=== PATIENT | male | born 1945 | race Caucasian/White ===

== ENCOUNTER 2019-08-02 18:12 | Observation (INO) | payer MEDICARE, OTHER ==
[~2019-08-02] VITALS: Ht 172.7 cm; Wt 82.2 kg
[~2019-08-02 18:12] MED LIST: ATEN50; ATOR40TA; Aspir 8181 MG PO; FISH1000; Hair, Skin & N1 EACH PO; LOSA25 PO; METO25ER PO; NITR.4SL; Percocet 5-3251 EACH PO; Zofran Odt4 MG SL; [UNRECOGNIZED DRUG - REMARK]
[2019-08-02] MEDS ORDERED: Hydrocodone-Ap1 EA26 PO (18:43)
[2019-08-02 18:45] LABS: BASOPHILS ABSOLUTE AUTO 0.03 K/mm3 (0.00-0.23); BASOPHILS PERCENT AUTO 0 % (0-2); EOSINOPHILS ABSOLUTE AUTO 0.28 K/mm3 (0.00-0.68); EOSINOPHILS PERCENT AUTO 3 % (0-6); IMMATURE GRAN ABSOLUTE AUTO 0.03 K/mm3 (0.00-0.10); IMMATURE GRAN PERCENT AUTO 0 % (0-1); LYMPHOCYTES ABSOLUTE AUTO 2.33 K/mm3 (0.84-5.20); LYMPHOCYTES PERCENT AUTO 27 % (21-46); MONOCYTES ABSOLUTE AUTO 0.92 K/mm3 (0.16-1.47); MONOCYTES PERCENT AUTO 11 % (4-13); Mean Corpuscular HGB 32.5 pg (26.0-34.0); Mean Corpuscular HGB Conc 34.1 g/dL (31.5-36.5); Mean Corpuscular Volume 95 fL (80-100); Mean Platelet Volume 9.7 fL (9.1-12.4); NEUTROPHILS ABSOLUTE AUTO 4.93 K/mm3 (1.96-9.15); NEUTROPHILS PERCENT AUTO 58 % (41-73); Platelet Count 238 K/mm3 (150-400); RDW Coefficient Variation 12.2 % (11.7-14.2); RDW Standard Deviation 42.9 fL (35.1-46.3); Red Blood Cell Count 4.61 M/mm3 (4.30-5.90); White Blood Cell Count 8.52 K/mm3 (4.00-11.30)
[2019-08-02 19:11] LABS: Troponin I <0.015 ng/mL (0.000-0.040)
[2019-08-02 19:17] LABS: Alanine Aminotransfer (ALT/SGP 62 U/L (12-78); Albumin, Blood 4.2 g/dL (3.4-5.0); Albumin/Globulin Ratio 1.4 (0.8-1.8); Alk Phos 54 U/L (50-136); Anion Gap 5 mmol/L (6-16); Aspartate Aminotrans (AST/SGOT 33 U/L (12-37); Bilirubin, Total 0.3 mg/dL (0.1-1.0); Blood Urea Nitrogen 22 mg/dL (8-24); Bun/Creatinine Ratio 23.1 (12.0-20.0); CO2, Blood 29 mmol/L (21-32); Calcium, Blood 9.3 mg/dL (8.5-10.1); Chloride, Blood 105 mmol/L (98-108); Creatinine, Blood 0.95 mg/dL (0.60-1.20); Glomerular Filtration Rate >60 (60-); Glucose, Blood 104 mg/dL (70-99); Potassium, Blood 3.9 mmol/L (3.5-5.5); Sodium, Blood 139 mmol/L (136-145); Total Protein, Blood 7.2 g/dL (6.4-8.2)
[2019-08-02] MEDS ORDERED: Simvastatin20 MG PO (20:05)
[2019-08-02] MEDS ORDERED: LOSARTAN-HCTZ1 EACH PO (20:06)
[2019-08-02] MEDS ORDERED: RANO500T PO (20:44)
[2019-08-02] MEDS ORDERED: ASCO500 PO (20:45)
[2019-08-02] MEDS ORDERED: Fish Oil 10001000 MG PO (20:45)
[2019-08-02] MEDS ORDERED: CO Q10200 MG PO (20:46)
[2019-08-03 02:53] LABS: Mean Corpuscular HGB 32.6 pg (26.0-34.0); Mean Corpuscular HGB Conc 34.1 g/dL (31.5-36.5); Mean Corpuscular Volume 95 fL (80-100); Mean Platelet Volume 9.5 fL (9.1-12.4); Platelet Count 237 K/mm3 (150-400); RDW Coefficient Variation 12.2 % (11.7-14.2); RDW Standard Deviation 42.4 fL (35.1-46.3); White Blood Cell Count 9.47 K/mm3 (4.00-11.30)
[2019-08-03 03:13] LABS: Alanine Aminotransfer (ALT/SGP 60 U/L (12-78); Albumin/Globulin Ratio 1.3 (0.8-1.8); Alk Phos 55 U/L (50-136); Anion Gap 7 mmol/L (6-16); Aspartate Aminotrans (AST/SGOT 33 U/L (12-37); Bilirubin, Total 0.4 mg/dL (0.1-1.0); Blood Urea Nitrogen 20 mg/dL (8-24); Bun/Creatinine Ratio 21.4 (12.0-20.0); CO2, Blood 27 mmol/L (21-32); CPK Creatine Kinase 293 U/L (39-308); Calcium, Blood 8.6 mg/dL (8.5-10.1); Chloride, Blood 106 mmol/L (98-108); Creatinine, Blood 0.94 mg/dL (0.60-1.20); Globulin, Blood 3.1 g/dL (2.2-4.0); Glomerular Filtration Rate >60 (60-); Glucose, Blood 111 mg/dL (70-99); Potassium, Blood 3.8 mmol/L (3.5-5.5); Sodium, Blood 140 mmol/L (136-145); Total Protein, Blood 7.1 g/dL (6.4-8.2); Troponin I <0.015 ng/mL (0.000-0.040)
--- NOTE | 2019-08-03 05:20 | NUR ---
SHIFT SUMMARY: SCAR IS A 74 Y/O MALE WHO WAS ADMITTED FOR CHEST PAIN WITH NEGATIVE TROPONIN. STATES HE HAS BEEN HAVING CHEST PAIN EVERY SINCE HE STARTED HIS HYDROCODONE FOR LOWER BACK PAIN. STATES HE HAS HAD 4 EPISODES OF CHEST PAIN THAT RADIATES TO THE JAW AND DOWN THE ARM. IT TYPICALLY RESOLVES BUT TONIGHT IT LASTED FOR 20 MINUTES. SO HE WAS BROUGHT TO THE HOSPITAL. HE TOOK NITRO AND ASA AT HOME. THIS RELEIVED THE PAIN BEFORE HE ARRIVED. HE WAS ADMITTED FOR OBSERVATION. HE ARRIVED TO THE FLOOR VIA WC. HE TRANSFERRED SELF TO THE BED AND WAS UP WALKING AROUND THE ROOM DURING ASSESSMENT. STATES HE CAN NOT SIT STILL DUE TO LOWER BACK PAIN. HE IS TO HAVE SURGERY ON Aug FOR HIS BACK. HE DENIES ANY CHEST PAIN AT THIS TIME. ASSESSMENT WAS BENIGN. MD WAS CALLED FOR HYDROCODONE ORDER FOR HIS BACK. ORDER WAS OBTAINED AND PILL WAS GIVEN FOR PAIN WITH FENTANYL. SHORTLY AFTER HE DID HAVE THE SAME TYPE OF PAIN HE DISCRIBED AGAIN AFTER TAKING THE PAIN MED. GI COCKTAIL WAS GIVEN TO SEE IF IT WOULD RELEIVE ANY PAIN, EVEN THOUGH PAIN HAD ALREADY RESOLVED. HE LAID BACK DOWN AND WENT TO SLEEP FOR A SHORT PERIOD OF TIME. NO OTHER CHANGES OCCURED THIS SHIFT. WILL REPORT TO DAY SHIFT RN.
[2019-08-03 10:57] LABS: CPK Creatine Kinase 263 U/L (39-308); Troponin I <0.015 ng/mL (0.000-0.040)
--- NOTE | 2019-08-03 17:04 | NUR ---
Shift Summary A/Ox4. Pleasant and cooperative with care. Pt seems to be slightly LOWER [place], this RN had to repeat a couple of times for pt to hear. Tele @ SR 89. Medicated for back pain once per EMAR with good results. Denies N/V/D. Has been up in room independently and continent to the bathroom. Denies N/T. C/o one time chest pain, but after burping, it went away according to patient. Blood pressure has been in the 140-150's, afebrile. Troponins continue to be negative x 3. No other acute changes this shift.
--- NOTE | 2019-08-04 04:38 | NUR ---
BUSINESS INSTRUCTOR SUMMARY PATIENT HAD NO COMPLAINTS OF BACK OR CHEST DISCOMFORT OVERNIGHT. UP AMBULATING IN HALLS BETWEEN SHORT BOUTS OF SLEEP. TELE: SR 70-80'S. NO SOB, PRESSURE OR CHEST PAIN NOTES. VITAL SIGNS STABLE.
[2019-08-04 04:49] LABS: Albumin, Blood 3.4 g/dL (3.4-5.0); Anion Gap 4 mmol/L (6-16); Blood Urea Nitrogen 22 mg/dL (8-24); Bun/Creatinine Ratio 22.6 (12.0-20.0); CHOL/HDL RATIO 3.9; CO2, Blood 28 mmol/L (21-32); Calcium, Blood 8.4 mg/dL (8.5-10.1); Chloride, Blood 106 mmol/L (98-108); Cholesterol 194 mg/dL (50-200); Creatinine, Blood 0.97 mg/dL (0.60-1.20); Glomerular Filtration Rate >60 (60-); Glucose, Blood 111 mg/dL (70-99); HDL Cholesterol 50 mg/dL (>39); LDL/HDL RATIO 2.3; Low Density Lipoprotein Chol 116 mg/dL (0-110); Phosphorus, Blood 2.9 mg/dL (2.5-4.9); Potassium, Blood 3.7 mmol/L (3.5-5.5); Sodium, Blood 138 mmol/L (136-145); Triglycerides 139 mg/dL (30-160); Very Low Density Lipoprot Chol 27 mg/dL (6-32)
--- NOTE | 2019-08-04 05:28 | NUR ---
SHIFT SUMMARY ADDENDUM: PATIENT STATED THAT HE HAD HAD A FEW SIPS OF WATER VALDEZ HE WOKE UP AT 0500. PITCHER WAS EMPTIED AND PATIENT VERBALIZED UNDERSTANDING THAT HE IS TO BE NPO BEFORE STRESS TEST.
--- NOTE | 2019-08-04 19:05 | NUR ---
SHIFT SUMMARY PATIENT A&O X4, NO ISSUES ON TELE TODAY, DENIES CHEST PAIN/PRESSURE, NAUSEA, SOB, WEAKNESS. HE STATED HE HAD CHRONIC LOWER BACK PAIN AND HAS SURGERY SCHEDULED, NORCO GIVEN. IT HELPS PAIN FOR PATIENT TO WALK AROUND. AT THE BEGINNING OF THE SHIFT PT WAS WALKING BACK AND FORTH IN THE [place] AND STATED HE WANTED TO LEAVE. STRESS TEST SCHEDULED TO START AT [address] ALDANA SPOKE TO THIS RN AND STATED SHE WANTED TO GET THE STRESS TEST COMPLETED IN ONE DAY TODAY. [facility]UC MED TECH WAS CALLED AND HE STATED HE COULD NOT SWITCH PATIENTS AROUND TO ACCOMODATE THAT. DR ALDANA SPOKE TO HIM AND THE 1 DAY STRESS TEST WAS ABLE TO BE PERFORMED. THIS WAS EXPLAINED TO PATIENT AND HE AGREED TO STAY TODAY BUT WOULD LIKE TO LEAVE WHEN IT IS COMPLETED TONIGHT. PATIENT IS PLEASANT AND REASONABLE WITH NURSING STAFF. RN NOTIFIED DR ALDANA THAT FULL STRESS TEST RESULTS ARE IN. PATIENT IS REFUSING TO HAVE DR ALDANA IN ROOM, SO SHE MET WITH INTRANET DEVELOPER AND RN TO TALK ABOUT SITUATION. SHE EXPLAINED THE EPISODE THAT HAPPENED LAST NIGHT BETWEEN DR ALDANA, THE PT, AND HIS , ABOUT HIS PAIN MEDS/FENTANYL ORDER. INTRANET DEVELOPER SPOKE WITH PATIENT AND . THE PATIENT CONTINUED TO REFUSE TO HAVE DR Harding IN ROOM. THIS RN ASKED PATIENT IF HE WANTED TO HEAR HIS TEST RESULTS, BUT STATED IT WOULD HAVE TO BE FROM DR ALDANA, NOT A NURSE. HE REFUSED. RN STATED THAT RESULTS/CHARTED INFORMATION COULD BE OBTAINED FROM MEDICAL RECORDS OR POTENTIALLY FROM HIS PCP. PSYCH NURSE STATED SHE COMPLETED DISCHARGE PACKET, REPORT PASSED ON TO SUPERINTENDENT MENAGERIE RN AND TRAINEE.
--- NOTE | 2019-08-04 20:01 | NUR ---
PATIENT DISCHARGED. SPOUSE PRESENT. DISCHARGE FORM SIGNED AND IN CHART. DISCHARGE PAPERS REVIEWED. TELEMETRY DC AND PIV DC'D. PATIENT AND SPOUSE TOOK PERSONAL BELONGINGS.
== END 2019-08-04 20:03 | disposition home or self-care (01) ==
LOC: ER 18:12 → MEDS 18:13
PROVIDERS: Internal Medicine; Physician Assistant; ADMIT Internal Medicine
DX: R07.89 Other chest pain (principal); E78.5 Hyperlipidemia, unspecified; I25.10 Atherosclerotic heart disease of native coronary artery without angina pectoris; M48.00 Spinal stenosis, site unspecified; F17.200 Nicotine dependence, unspecified, uncomplicated; I10 Essential (primary) hypertension; M47.819 Spondylosis without myelopathy or radiculopathy, site unspecified; R14.1 Gas pain; I25.2 Old myocardial infarction; K59.00 Constipation, unspecified; M54.5 Low back pain; G89.29 Other chronic pain; M25.559 Pain in unspecified hip; I25.110 Atherosclerotic heart disease of native coronary artery with unstable angina pectoris; E66.9 Obesity, unspecified; Z79.82 Long term (current) use of aspirin; Z79.899 Other long term (current) drug therapy; Z88.5 Allergy status to narcotic agent; Z88.6 Allergy status to analgesic agent; Z82.49 Family history of ischemic heart disease and other diseases of the circulatory system; Z68.27 Body mass index [BMI] 27.0-27.9, adult
CPT/HCPCS: 36415; 71046; 78452; 80053; 80061; 80069; 82550; 83036; 84484; 85025; 85027; 93005; 93010; 93017; 96372; 96374; 96375; 96376; 99285-25; A9500; C9113; G0378; J0706; J1650; J2785; J3010

== ENCOUNTER → 2019-12-07 | Outpatient (CLI) | payer MEDICARE ==
[~2019-12-07] MED LIST changes: +ASCO500 PO; +CO Q10200 MG PO; +Fish Oil 10001000 MG PO; +Hydrocodone-Ap1 EA26 PO; +LOSARTAN-HCTZ1 EACH PO; +RANO500T PO; +Simvastatin20 MG PO
== END ==
LOC: LAB SHORT 07:54 → PLD 07:54
DX: D48.5 Neoplasm of uncertain behavior of skin (principal)
CPT/HCPCS: 88305

== ENCOUNTER → 2020-01-04 | Outpatient (CLI) | payer MEDICARE | END | disposition home or self-care (01) | LOC: PLD 11:48 → LAB SHORT 11:48 | DX: D48.5 Neoplasm of uncertain behavior of skin (principal) | CPT/HCPCS: 88305 ==

== ENCOUNTER → 2023-03-12 | Outpatient (CLI) | payer MEDICARE ==
[2023-03-12 13:40] LABS: Hematocrit 41.8 % (37.0-53.0); Hemoglobin 14.3 g/dL (13.5-17.5); Mean Corpuscular HGB 32.4 pg (26.0-34.0); Mean Corpuscular HGB Conc 34.2 g/dL (31.5-36.5); Mean Corpuscular Volume 95 fL (80-100); Mean Platelet Volume 10.4 fL (9.1-12.4); Platelet Count 216 K/mm3 (150-400); RDW Coefficient Variation 12.6 % (11.7-14.2); RDW Standard Deviation 43.6 fL (35.1-46.3); Red Blood Cell Count 4.42 M/mm3 (4.30-5.90); White Blood Cell Count 7.08 K/mm3 (4.00-11.30)
[2023-03-12 14:22] LABS: Very Low Density Lipoprot Chol 26 mg/dL (6-32)
[2023-03-12 14:34] LABS: Alanine Aminotransfer (ALT/SGP 25 U/L (12-78); Albumin, Blood 3.8 g/dL (3.4-5.0); Albumin/Globulin Ratio 1.2 (0.8-1.8); Alk Phos 63 U/L (50-136); Anion Gap 4 mmol/L (6-16); Aspartate Aminotrans (AST/SGOT 19 U/L (12-37); Bilirubin, Total 0.6 mg/dL (0.1-1.0); Blood Urea Nitrogen 14 mg/dL (8-24); Bun/Creatinine Ratio 12.1 (12.0-20.0); CHOL/HDL RATIO 3.7; CO2, Blood 28 mmol/L (21-32); Calcium, Blood 8.9 mg/dL (8.5-10.1); Chloride, Blood 110 mmol/L (98-108); Cholesterol 193 mg/dL (50-200); Creatinine, Blood 1.16 mg/dL (0.60-1.20); Globulin, Blood 3.3 g/dL (2.2-4.0); Glomerular Filtration Rate 65 (60-); Glucose, Blood 122 mg/dL (70-99); HDL Cholesterol 52 mg/dL (>39); LDL/HDL RATIO 2.2; Low Density Lipoprotein Chol 115 mg/dL (0-110); Sodium, Blood 142 mmol/L (136-145); Total Protein, Blood 7.1 g/dL (6.4-8.2); Triglycerides 131 mg/dL (30-160)
== END | disposition home or self-care (01) ==
LOC: LAB 11:35 → LAB SHORT 11:35
PROVIDERS: Nurse Practitioner Family
DX: Z13.29 Encounter for screening for other suspected endocrine disorder (principal); E78.5 Hyperlipidemia, unspecified; I10 Essential (primary) hypertension; R73.01 Impaired fasting glucose
CPT/HCPCS: 36415; 80053; 80061; 83036; 84443; 85027